=== PATIENT | male | born 1990 | race African-American/Black ===

== ENCOUNTER 2019-02-27 12:15 | Emergency (ER) | payer MEDICAID ==
[~2019-02-27] VITALS: Ht 182.9 cm; Wt 81.6 kg
[2019-02-27 12:15] VITALS: BP_SYST 140
[2019-02-27] MEDS ORDERED: HYDROcodone/ACETAMIN 5-325 MG TAB (NORCO/ VICODIN) PO ONE (12:30)
[2019-02-27] MEDS ORDERED: IBUPROFEN 800 MG TABLET PO ONE (12:30)
[2019-02-27 14:10] VITALS: BP_SYST 140
== END 2019-02-27 14:10 | disposition home or self-care (01) ==
LOC: SED 12:15
DX: S13.4XXA Sprain of ligaments of cervical spine, initial encounter (principal); S33.5XXA Sprain of ligaments of lumbar spine, initial encounter; V49.40XA Driver injured in collision with unspecified motor vehicles in traffic accident, initial encounter; Y93.89 Activity, other specified; Y92.89 Other specified places as the place of occurrence of the external cause; Y99.8 Other external cause status
CPT/HCPCS: 71045; 72040-TC; 72100-TC; 72170-TC; 99283